=== PATIENT | male | born 1980 | race African-American/Black ===

== ENCOUNTER 2016-10-10 07:19 | Emergency (ER) | payer OTHER ==
[~2016-10-10] VITALS: Ht 167.6 cm; Wt 83.9 kg
[~2016-10-10 07:19] MED LIST: AZITHROMYCIN 2250 MG PO; CHANTIX1 MG PO; NOHOMEMEDICATIONS; PREDNISONE 20 M20 MG PO; Tylenol 325MG Caplet PO; VENTOLIN HFA 1818 GM INH
[2016-10-10 07:21] VITALS: BP 127/81
[2016-10-10] MEDS ORDERED: VENTOLIN HFA 1818 GM INH (07:47)
== END 2016-10-10 08:11 | disposition home or self-care (01) ==
LOC: ER 07:19
DX: J06.9 Acute upper respiratory infection, unspecified (principal); J45.909 Unspecified asthma, uncomplicated; F17.210 Nicotine dependence, cigarettes, uncomplicated; Z98.890 Other specified postprocedural states; Z88.1 Allergy status to other antibiotic agents

== ENCOUNTER 2016-10-14 11:29 | Emergency (ER) | payer OTHER ==
[~2016-10-14] VITALS: Ht 175.3 cm; Wt 103.4 kg
--- NOTE | ~2016-10-14 | EKG ---
[address] [email or web address] [address] ELECTROCARDIOGRAM REPORT Name: DAVID TUTTLESAURABH Villeda JR [facility]: [facility] [id number] Admission: 10/14/16 Attend Phys: Discharge: 10/14/16 Date of : 76 Report #: [id number] THIS REPORT FOR: //name// [facility] ED Test Date: 2016-10-14 Test Time: 11:53:19 Pat Name: TU TUTTLE Department: Room: Gender: M Casting Chipper: CWEIEVERETTE : 1980 Requested By: Gilberto Senior Order Number: [id number] MD: Mandeep Raines Measurements Intervals [place] Rate: 93 P: 64 MI: 144 QRS: 39 QRSD: 71 T: 54 QT: 340 QTc: 423 Interpretive Statements Sinus rhythm Probable left atrial enlargement Abnormal R-wave progression, early transition Compared to ECG 11/26/2015 05:14:00 No significant changes Electronically Signed On 10-15-2016 12:40:28 CDT by Mandeep Raines [email or web address] <ELECTRONICALLY SIGNED> By: Mandeep Raines MD 10/15/16 1240 1153 1153 Mandeep Raines MD /ISAMAR
--- NOTE | ~2016-10-14 | EKG ---
[address] [address] ELECTROCARDIOGRAM REPORT Name: DAVID TUTTLESAURABH Villeda JR Room #: [facility] [id number] Admission: 10/14/16 Attend Phys: Discharge: 10/14/16 Date of : 76 Report #: [id number] THIS REPORT FOR: //name// [facility] ED Test Date: 2016-10-14 Test Time: 11:43:55 Pat Name: TU TUTTLE Department: Room: Gender: [place] Tender: [id number] : 1980 Requested By: Gilberto Senior Order Number: [id number] MD: Mandeep Raines Measurements Intervals [place] Rate: 102 P: 63 AK: 141 QRS: 36 QRSD: 87 T: 47 QT: 334 QTc: 436 Interpretive Statements Sinus tachycardia Abnormal R-wave progression, early transition Compared to ECG 11/26/2015 05:14:00 Sinus rhythm no longer present Electronically Signed On 10-15-2016 12:40:19 CDT by Mandeep Raines [email or web address] <ELECTRONICALLY SIGNED> By: Mandeep Raines MD 10/15/16 1240 1143 1143 MD MALLORIE Macias
[2016-10-14] MEDS ORDERED: DOXYCYCLINE 10100 M1 PO (12:58)
[2016-10-14] MEDS ORDERED: VENTOLIN HFA 1818 GM INH (12:58)
[2016-10-14] MEDS ORDERED: PREDNISONE 20 M20 MG PO (12:58)
[2016-10-14 13:10] VITALS: BP 164/95
== END 2016-10-14 13:20 | disposition home or self-care (01) ==
LOC: ER 11:29
DX: J45.901 Unspecified asthma with (acute) exacerbation (principal); F17.210 Nicotine dependence, cigarettes, uncomplicated; Z88.1 Allergy status to other antibiotic agents

== ENCOUNTER 2017-02-10 17:05 | Emergency (ER) | payer OTHER ==
[~2017-02-10] VITALS: Ht 175.3 cm; Wt 107.5 kg
--- NOTE | ~2017-02-10 | EKG ---
[address] [address] ELECTROCARDIOGRAM REPORT Name: DAVID TUTTLESAURABH Villeda JR Room #[facility] [id number] Admission: 02/10/17 Attend Phys: Discharge: 02/10/17 Date of : 76 Report #: [id number] THIS REPORT FOR: //name// [facility] ED Test Date: 2017-02-10 Test Time: 17:59:24 Pat Name: TU TUTTLE Department: Room: Gender: Performance Instructor: UNK : 1980 Requested By: Yogesh Ruiz Order Number: [id number] MD: Clyde Mckinney Measurements Intervals [place] Rate: 99 P: 74 MA: 150 QRS: 47 QRSD: 65 T: 70 QT: 331 QTc: 425 Interpretive Statements Sinus rhythm Left atrial enlargement Compared to ECG 10/14/2016 11:53:19 No significant changes Electronically Signed On 02-13-2017 12:00:27 SENIOR ACCOUNT DIRECTOR by Clyde Mckinney [email or web address] <ELECTRONICALLY SIGNED> By: Clyde Mckinney MD 02/13/17 1200 1759 1759 MD MALLORIE Nogueira
[~2017-02-10 17:05] MED LIST changes: +DOXYCYCLINE 10100 M1 PO
[2017-02-10 18:11] LABS: ABSOLUTE NEUTROPHILS 6.5 thou/uL (1.4-8.2); BASOPHILS 1.2 % (0.0-2.0); HEMATOCRIT 48.6 % (42.0-52.0); HEMOGLOBIN 16.6 gm/dL (14.0-18.0); LYMPHOCYTES 31.2 % (24.0-44.0); MCH 26.9 pg (26.0-34.0); MCHC 34.3 g/dL (28.0-37.0); MCV 78.6 fL (80.0-100.0); MONOCYTES 7.7 % (1.0-8.0); PLATELET COUNT 253 thou/uL (150-400); POLYS 53.9 % (36.0-66.0); RBC 6.18 mil/uL (4.50-6.00); RDW 12.5 % (10.5-14.5); WBC 12.1 thou/uL (4.0-11.0)
[2017-02-10 18:23] LABS: ANION GAP 9 mmol/L (7-16); BUN 11 mg/dL (7-18); CALCIUM 9.4 mg/dL (8.5-10.1); CHLORIDE 102 mmol/L (98-107); CO2 28 mmol/L (21-32); CREATININE 1.2 mg/dL (0.7-1.3); GLUCOSE 133 mg/dL (74-106); POTASSIUM 3.8 mmol/L (3.5-5.1); SODIUM 139 mmol/L (136-145)
[2017-02-10 18:40] LABS: ALBUMIN 3.7 g/dL (3.4-5.0); LIPASE 109 U/L (73-393); SGOT 26 U/L (15-37); SGPT 36 U/L (30-65); TOTAL BILIRUBIN 0.4 mg/dL (<0.1-1.0); TOTAL PROTEIN 7.7 g/dL (6.4-8.2); TROPONIN-I < 0.04 ng/mL (<0.06)
[2017-02-10] MEDS ORDERED: LEVAQUIN 750 M750 MG PO (19:40)
[2017-02-10] MEDS ORDERED: PREDNISONE 20 M20 MG PO (19:40)
[2017-02-10] MEDS ORDERED: PROVENTIL HFA6.7 G1 INH (19:40)
== END 2017-02-10 19:56 | disposition home or self-care (01) ==
LOC: ER 17:05
PROVIDERS: Physician Assistant
DX: J45.901 Unspecified asthma with (acute) exacerbation (principal); J18.9 Pneumonia, unspecified organism; J45.909 Unspecified asthma, uncomplicated; F17.210 Nicotine dependence, cigarettes, uncomplicated; Z88.0 Allergy status to penicillin; Z98.890 Other specified postprocedural states